=== PATIENT | male | born 1950 | race Caucasian/White ===

== ENCOUNTER 2022-08-08 08:52 | Emergency (ER) | payer BC, SELFPAY ==
--- NOTE | ~2022-08-08 | XR_ITS ---
EXAMINATION: XR ankle RT min 3V DATE: 08/08/2022 09:10 INDICATION: Right ankle injury. TECHNIQUE: 4 views of right ankle were obtained. COMPARISON: None. FINDINGS: Pes planus is noted. No fracture. There is mild osteoarthritis of the ankle joint. There is an enthesophyte at posterior aspect of calcaneal tuberosity. IMPRESSION: 1. Mild ankle joint osteoarthritis. Reviewed, dictated and finalized at location A.
--- NOTE | 2022-08-08 08:53 | ED.LOWEXIN ---
HPI - Extremity Injury (Lower) General Chief Complaint: Extremity Injury, Lower Stated Complaint: right ankle injury Time Seen by Provider: 08/08/22 08:58 Source: patient, RN notes reviewed and old records reviewed Mode of arrival: ambulatory Limitations: no limitations History of Present Illness HPI Narrative: 72 year old male presents to the [facility] right ankle pain Patient states that on Saturday, 4 days ago was standing in his kitchen and rolled his ankle. Has been icing it. Has not taken any other medication for his discomfort. Currently wearing a Velcro ankle brace Onset (ago): day(s) (4) Related Data Allergies Allergy/AdvReac Type Severity Reaction Status Date / Time diclofenac Allergy Severe Unknown Verified 08/08/22 09:03 bee venom protein (honey bee) Allergy Intermediate Unknown Verified 08/08/22 09:03 Cephalosporins Allergy Unknown Unknown Verified 08/08/22 09:03 Penicillins Allergy Unknown Unknown Verified 08/08/22 09:03 Review of Systems Review of Systems: All systems reviewed & are unremarkable except as noted in HPI and below Constitutional: Constitutional: Reports no additional constitutional complaints Eyes: Eyes: Reports no additional eye complaints ENT: Reports system reviewed and no additional complaints, except as documented Cardiovascular: Cardiovascular: Reports no additional cardiovascular complaints, Denies chest pain and Denies dyspnea Respiratory: Respiratory: Reports no additional respiratory complaints, Denies chest congestion, Denies cough and Denies dyspnea Gastrointestinal: Gastrointestinal: Reports no additional gastrointestinal complaints, Denies abdominal pain, Denies nausea and Denies vomiting Musculoskeletal: Musculoskeletal: Reports as per HPI and Reports arthralgias (right ankle) Integumentary/Breasts: Skin/Breast: Reports system reviewed and no additional complaints, except as docu Neurologic: Reports system reviewed and no additional complaints, except as documented Psychiatric: Psychiatric: Reports no additional psychiatric complaints Allergic/Immunologic: Allergic/Immunologic: Reports no additional allergic/immunologic complaints PMFSH Past Medical History Medical History Bee sting allergy Chronic low back pain without sciatica CKD (chronic kidney disease) stage 3, GFR 30-59 ml/min Dyslipidemia Essential (primary) hypertension History of TIA (transient ischemic attack) Hypothyroidism (acquired) Type 2 diabetes mellitus without complication, without long-term current use of insulin Unspecified osteoarthritis, unspecified site Surgical History Surgical History History of appendectomy (~1954) History of arthroscopy of right knee (~10/2007) 10/2007 History of tonsillectomy (~1956) Family History Family History Father Family history of cardiovascular disease, Onset Age: 72 Social History Social History Second hand tobacco smoke exposure: No Alcohol intake: never Substance use: never Substance use type: does not use Comments At the time of my signature, I reviewed and agree with the nursing past medical, surgical, social, and family history. There is no relevant family history pertinent to the patient complaint. Exam Const: General: cooperative, healthy appearing, comfortable, no acute distress, well developed, alert and well nourished Nutritional Appearance: well nourished and obese Orientation/consciousness: patient oriented x3 Limitations: no limitations HENMT: Head: normal to inspection Ears: hearing grossly normal bilaterally and external ears normal Face/Nose/Sinus: Normal external nose present, Normal nares present, Normal nasal mucous membranes and turbinates present and normal facial exam Face and sinus: normal facial exam
[2022-08-08 08:58] VITALS: BP 151/82; PULSE 70; RESP 18; TEMP 36.8; O2SAT 98
--- NOTE | 2022-08-08 09:09 | PC.NURSE ---
PT DECLINED WHEELCHAIR TO RADIOLOGY AND ICE FOR COMFORT
== END 2022-08-08 09:25 | disposition home or self-care (01) ==
PROVIDERS: Emergency Provider Nurse Practitioner; PCP Family Medicine
DX: S93.401A Sprain of unspecified ligament of right ankle, initial encounter (principal); X50.9XXA Other and unspecified overexertion or strenuous movements or postures, initial encounter; I13.10 Hypertensive heart and chronic kidney disease without heart failure, with stage 1 through stage 4 chronic kidney disease, or unspecified chronic kidney disease; E11.22 Type 2 diabetes mellitus with diabetic chronic kidney disease; N18.30 Chronic kidney disease, stage 3 unspecified; E78.5 Hyperlipidemia, unspecified; E03.9 Hypothyroidism, unspecified; M19.90 Unspecified osteoarthritis, unspecified site; Z86.73 Personal history of transient ischemic attack (TIA), and cerebral infarction without residual deficits; Z79.84 Long term (current) use of oral hypoglycemic drugs
CPT/HCPCS: 73610; 99213; G0463